=== PATIENT | female | born 1930 | race Caucasian/White ===

== ENCOUNTER 2017-06-19 16:12 | Inpatient (IN) | payer MEDICARE, MEDICAID ==
[~2017-06-19] VITALS: Ht 157.5 cm; Wt 50.5 kg
[~2017-06-19 16:12] MED LIST: ACET-75 PO; ALBU8.5H8 INH; ALEN70TA13 PO; DIVA250T6 PO; GABA-530 PO; LEVO50TA8 PO; METH500T PO; MULT-1141 PO; NITR0.4T SL; PANT-47 PO; SIMV10TA2 PO; SOTA80TA PO
[2017-06-19] MEDS ORDERED: normal saline 1000ML IV soln IV ONE (16:55)
[2017-06-19 17:14] LABS: ALANINE AMINOTRANSFERASE 22 U/L (12-78); ALBUMIN 3.8 G/DL (3.4-5.0); ALBUMIN/GLOBULIN RATIO 1.2 (1.1-1.5); ALKALINE PHOSPHATASE 83 IU/L (46-116); ANION GAP 9 (8-16); ASPARTATE AMINO TRANSFERASE 18 U/L (10-37); BILIRUBIN,TOTAL 1.1 MG/DL (0.1-1.0); BLOOD UREA NITROGEN 11 MG/DL (7-18); BUN/CREATININE RATIO 18.3 (6.6-38.0); CALCIUM 9.3 MG/DL (8.5-10.1); CHLORIDE 103 MMOL/L (99-107); GLUCOSE 121 MG/DL (70-104); POTASSIUM 4.1 MMOL/L (3.5-5.1); SODIUM 143 MMOL/L (135-145); eGFR > 90 ML/MIN
[2017-06-19 17:25] LABS: BASOPHILS % (AUTO) 0.4 % (0-1); EOSINOPHILS # (AUTO) 0.1 X10'3 (0-0.9); EOSINOPHILS % (AUTO) 0.8 % (0-6); HEMATOCRIT 35.4 % (35.0-45.0); HEMOGLOBIN 11.7 g/dl (12.0-16.0); LYMPHOCYTES # (AUTO) 3.3 X10'3 (1.1-4.8); LYMPHOCYTES % (AUTO) 48.9 % (21-51); MEAN CORPUSCULAR HEMOGLOBIN 30.4 PG (27.0-31.0); MEAN CORPUSCULAR HGB CONC 33.2 % (33.0-36.5); MEAN CORPUSCULAR VOLUME 91.5 FL (78-98); MEAN PLATELET VOLUME 10.4 FL (7.4-10.4); MONOCYTES # (AUTO) 0.8 X10'3 (0-0.9); MONOCYTES % (AUTO) 11.7 % (2-12); NEUTROPHILS # (AUTO) 2.6 X10'3 (1.8-7.7); NEUTROPHILS % (AUTO) 38.2 % (42-75); PLATELET COUNT 212 X10'3 (140-440); RED BLOOD COUNT 3.86 X10'6 (4.20-5.60); RED CELL DISTRIBUTION WIDTH 23.4 % (11.5-14.5); WHITE BLOOD COUNT 6.7 X10'3 (4.5-11.0)
[2017-06-19 17:38] LABS: CLARITY,URINE CLEAR (Clear); COLOR,URINE YELLOW (Yellow); GLUCOSE, URINE NEGATIVE (Neg); KETONES,URINE 15 mg/dl (Neg); LEUKOCYTE ESTERASE ,URINE TRACE (Neg); NITRITES, URINE POSITIVE (Neg); OCCULT BLOOD,URINE SMALL (Neg); PH,URINE 5.5 (4.8-8.0); PROTEIN,URINE >=300 mg/dl (Neg)
[2017-06-19 17:42] LABS: UA COLLECTION TYPE FOLEY CATH
[2017-06-19] MEDS ORDERED: levoFLOXACIN-Levaquin 750MG/D5 150 ML IV ONE (17:45)
[2017-06-19 17:49] LABS: PARTIAL THROMBOPLASTIN TIME 25 SECONDS (22-32); PROTHROMBIN TIME 10.6 SECONDS (9.0-12.0)
[2017-06-19 17:53] LABS: BACTERIA,URINE 3+ /HPF (Neg); RBC,URINE 0-2 /HPF (0-2); SQUAMOUS EPITHELIAL CELL,UR FEW /LPF (FEW); WBC,URINE 30-50 /HPF (0-4)
[2017-06-19 17:54] LABS: MAGNESIUM 1.9 MG/DL (1.5-2.4)
[2017-06-19] MEDS ORDERED: clindamycin 600mg/D5W 50ml 50 ML IV ONE (18:05)
[2017-06-19] MEDS ORDERED: SIMV10TA2 PO (18:49)
[2017-06-19] MEDS ORDERED: CHOL10002 PO (18:49)
[2017-06-19] MEDS ORDERED: DIVA500T7 PO (18:49)
[2017-06-19] MEDS ORDERED: OSC500T PO (18:49)
[2017-06-19 20:15] LABS: D-DIMER 0.52 MG/L FEU (0-0.50)
[2017-06-19] MEDS ORDERED: temazepam 15mg capsule PO PRN (21:00)
[2017-06-19] MEDS ORDERED: non-formulary drug (Alendronate Sodium 1 TABLET) PO SCH (21:25)
[2017-06-19] MEDS ORDERED: HYDROcodone/acetaminophen 5mg/325mg tablet PO PRN (21:30)
[2017-06-19] MEDS ORDERED: magnesium hydroxide 30ml (MOM) UD suspension PO PRN (21:30)
[2017-06-19] MEDS ORDERED: acetaminophen 325mg tablet PO PRN ×2 (21:30)
[2017-06-19] MEDS ORDERED: mag hydrox/Alum hydrox/simeth 30ml oral suspension PO PRN (21:30)
[2017-06-19] MEDS ORDERED: diphenhydrAMINE 25mg capsule PO PRN (21:30)
[2017-06-19] MEDS ORDERED: metoclopramide 5 mg/ml inj IV PRN (21:30)
[2017-06-19] MEDS ORDERED: diphenhydrAMINE 50 mg/ml inj IV PRN (21:30)
[2017-06-19] MEDS ORDERED: ondansetron/PF 4mg/2ml inj IV PRN (21:30)
[2017-06-19] MEDS ORDERED: bisacodyl 10mg suppository rectal RC PRN (21:30)
[2017-06-19] MEDS ORDERED: acetaminophen 650mg rectal suppository RC PRN (21:30)
[2017-06-19] MEDS ORDERED: lisinopril 10 MG tablet PO ONE (21:35)
[2017-06-19] MEDS ORDERED: cloNIDine 0.1 mg tablet PO ONE (21:35)
[2017-06-19] MEDS ORDERED: hydrALAZINE 20mg/ml inj. IV PRN (21:40)
[2017-06-19 21:54] LABS: LIPASE 86 U/L (73-393); PHOSPHORUS 3.4 MG/DL (2.3-4.5); VALPROATE 72 UG/ML (50-100)
[2017-06-19 22:34] LABS: PARTIAL THROMBOPLASTIN TIME 26 SECONDS (22-32); PROTHROMBIN TIME 10.8 SECONDS (9.0-12.0)
[2017-06-20] MEDS: clindamycin phosphate inj 300 MG in dextrose 5%-water 50ml 48 ML IV SCH ×2 (00:25→08:40)
[2017-06-20 07:14] LABS: BASOPHILS % (AUTO) 0.3 % (0-1); EOSINOPHILS % (AUTO) 1.2 % (0-6); HEMOGLOBIN 8.9 g/dl (12.0-16.0); LYMPHOCYTES # (AUTO) 1.9 X10'3 (1.1-4.8); LYMPHOCYTES % (AUTO) 58.1 % (21-51); MEAN CORPUSCULAR HEMOGLOBIN 30.2 PG (27.0-31.0); MEAN CORPUSCULAR HGB CONC 33.1 % (33.0-36.5); MEAN CORPUSCULAR VOLUME 91.3 FL (78-98); MEAN PLATELET VOLUME 9.7 FL (7.4-10.4); MONOCYTES # (AUTO) 0.5 X10'3 (0-0.9); MONOCYTES % (AUTO) 14.2 % (2-12); NEUTROPHILS # (AUTO) 0.8 X10'3 (1.8-7.7); NEUTROPHILS % (AUTO) 26.2 % (42-75); PLATELET COUNT 153 X10'3 (140-440); RED BLOOD COUNT 2.95 X10'6 (4.20-5.60); WHITE BLOOD COUNT 3.2 X10'3 (4.5-11.0)
[2017-06-20] MEDS: levoTHYROXINE 25mcg tablet PO SCH ×2 (07:15→08:36)
[2017-06-20 07:30] LABS: ALANINE AMINOTRANSFERASE 19 U/L (12-78); ALBUMIN 2.7 G/DL (3.4-5.0); ALBUMIN/GLOBULIN RATIO 1.1 (1.1-1.5); ALKALINE PHOSPHATASE 62 IU/L (46-116); ANION GAP 6 (8-16); ASPARTATE AMINO TRANSFERASE 14 U/L (10-37); BILIRUBIN,TOTAL 0.6 MG/DL (0.1-1.0); BLOOD UREA NITROGEN 11 MG/DL (7-18); BUN/CREATININE RATIO 18.3 (6.6-38.0); CALCIUM 8.5 MG/DL (8.5-10.1); CHLORIDE 108 MMOL/L (99-107); GLUCOSE 167 MG/DL (70-104); POTASSIUM 3.4 MMOL/L (3.5-5.1); SODIUM 146 MMOL/L (135-145); TOTAL CARBON DIOXIDE 32.2 MMOL/L (24-32); TOTAL PROTEIN 5.2 G/DL (6.4-8.2); eGFR > 90 ML/MIN
[2017-06-20 08:00] VITALS: BP 146/66
[2017-06-20] MEDS ORDERED: divalproex sodium 500mg tablet.DR PO SCH (08:00)
[2017-06-20] MEDS ORDERED: heparin, porcine 5000 units/ml vial SQ SCH (08:00)
[2017-06-20] MEDS ORDERED: methylPREDNISolone sod succ 125mg/2ml vial IV ONE (08:00)
[2017-06-20] MEDS ORDERED: non-formulary drug (Simvastatin (Zocor) 1 TAB) PO SCH (08:00)
[2017-06-20] MEDS ORDERED: non-formulary drug (Levothyroxine Sodium 1 TAB) PO SCH (08:00)
[2017-06-20] MEDS ORDERED: magnesium 4gm in 100ml NS 100 ML IV PRN (08:15)
[2017-06-20] MEDS ORDERED: potassium Cl 20 mEq SR tablet PO PRN (08:15)
[2017-06-20] MEDS ORDERED: potassium Cl 40MEQ/NS 500ml 500 ML IV PRN ×2 (08:15)
[2017-06-20] MEDS ORDERED: magnesium Cl slow-release 64mg tablet PO PRN (08:15)
[2017-06-20] MEDS ORDERED: magnesium 2GM in 50ml NS 50 ML IV PRN (08:15)
[2017-06-20] MEDS: gabapentin 300mg capsule PO SCH ×2 (08:36→19:53)
[2017-06-20] MEDS: pantoprazole 40mg Tablet.DR PO SCH (08:36)
[2017-06-20] MEDS: sotalol 80mg tablet PO SCH ×2 (08:36→19:53)
[2017-06-20] MEDS: atorvastatin 10mg tablet PO SCH (08:36)
[2017-06-20] MEDS: docusate sod 100mg capsule PO SCH ×2 (08:36→19:53)
[2017-06-20] MEDS: potassium Cl 20 mEq SR tablet PO PRN ×3 (08:40→21:52)
[2017-06-20] MEDS: divalproex sodium 250mg tablet PO SCH ×3 (08:47→20:56)
[2017-06-20 11:00] VITALS: BP 135/61
[2017-06-20] MEDS ORDERED: vancomycin/NS 1 GM ADD-VANTAGE 250 ML X 1 DOSE IV ONE (15:35)
[2017-06-20] MEDS: potassium cl 20mEq in 1/2 NS 1,000 ML IV SCH (17:29)
[2017-06-20] MEDS: methylPREDNISolone sod succ 125mg/2ml vial IV SCH (17:29)
[2017-06-20 19:50] VITALS: BP 150/80
[2017-06-20] MEDS: ipratropium/albuterol 3ml nebule NEB SCH ×2 (19:51→23:40)
[2017-06-20] MEDS ORDERED: vancomycin/NS 1 GM ADD-VANTAGE 250 ML IV SCH (20:00)
[2017-06-20] MEDS: aztreonam inj. 1,000 MG in normal saline 100ml IV soln 100 ML IV SCH (20:56)
[2017-06-21 00:30] VITALS: BP 132/80
[2017-06-21] MEDS: methylPREDNISolone sod succ 125mg/2ml vial IV SCH ×3 (01:02→16:18)
[2017-06-21] MEDS: aztreonam inj. 1,000 MG in normal saline 100ml IV soln 100 ML IV SCH ×3 (01:02→16:19)
[2017-06-21] MEDS: ipratropium/albuterol 3ml nebule NEB SCH ×6 (02:13→23:36)
[2017-06-21] MEDS: potassium cl 20mEq in 1/2 NS 1,000 ML IV SCH ×2 (03:50→11:06)
[2017-06-21 05:51] LABS: HEMATOCRIT 28.7 % (35.0-45.0); HEMOGLOBIN 9.5 g/dl (12.0-16.0); MEAN CORPUSCULAR HEMOGLOBIN 30.2 PG (27.0-31.0); MEAN CORPUSCULAR HGB CONC 33.3 % (33.0-36.5); MEAN CORPUSCULAR VOLUME 90.9 FL (78-98); PLATELET COUNT 178 X10'3 (140-440); RED BLOOD COUNT 3.15 X10'6 (4.20-5.60); RED CELL DISTRIBUTION WIDTH 22.6 % (11.5-14.5); WHITE BLOOD COUNT 1.4 X10'3 (4.5-11.0)
[2017-06-21 06:12] LABS: ALANINE AMINOTRANSFERASE 17 U/L (12-78); ALBUMIN 2.9 G/DL (3.4-5.0); ALKALINE PHOSPHATASE 68 IU/L (46-116); ANION GAP 7 (8-16); ASPARTATE AMINO TRANSFERASE 15 U/L (10-37); BILIRUBIN,TOTAL 0.5 MG/DL (0.1-1.0); BLOOD UREA NITROGEN 7 MG/DL (7-18); CALCIUM 8.6 MG/DL (8.5-10.1); CHLORIDE 107 MMOL/L (99-107); GLUCOSE 200 MG/DL (70-104); POTASSIUM 4.8 MMOL/L (3.5-5.1); SODIUM 144 MMOL/L (135-145); TOTAL CARBON DIOXIDE 29.8 MMOL/L (24-32); TOTAL PROTEIN 5.8 G/DL (6.4-8.2); eGFR 79 ML/MIN
[2017-06-21 07:00] VITALS: BP 154/75
[2017-06-21 07:19] LABS: LARGE PLATELETS FEW; PLATELET ESTIMATE NORMAL; TOTAL CELLS COUNTED 100
[2017-06-21 07:20] LABS: ACANTHOCYTES FEW; ANISOCYTOSIS 3+; POLYCHROMASIA FEW; TEAR DROP CELLS FEW
[2017-06-21] MEDS: sotalol 80mg tablet PO SCH ×2 (08:15→19:38)
[2017-06-21] MEDS: divalproex sodium 250mg tablet PO SCH ×3 (08:15→21:45)
[2017-06-21] MEDS: gabapentin 300mg capsule PO SCH ×2 (08:15→19:38)
[2017-06-21] MEDS: docusate sod 100mg capsule PO SCH ×2 (08:15→19:38)
[2017-06-21] MEDS: atorvastatin 10mg tablet PO SCH (08:15)
[2017-06-21] MEDS: pantoprazole 40mg Tablet.DR PO SCH (08:15)
[2017-06-21 11:00] VITALS: BP 149/72
[2017-06-21] MEDS: VANCOMYCIN 750MG IV in NS 250 ML IV SCH (17:16)
[2017-06-21] MEDS: lactobacillus rhamnosus 10,000 MMU CELLS/CAPSULE PO SCH (17:16)
[2017-06-21 18:30] VITALS: BP 159/80
[2017-06-21] MEDS: methylPREDNISolone sod succ/PF 40mg inj. IV SCH (19:50)
[2017-06-22] VITALS: BP 140/55
[2017-06-22] MEDS: aztreonam inj. 1,000 MG in normal saline 100ml IV soln 100 ML IV SCH ×3 (00:11→15:01)
[2017-06-22] MEDS: ipratropium/albuterol 3ml nebule NEB SCH ×6 (03:16→23:15)
[2017-06-22 03:23] LABS: HEMATOCRIT 25.8 % (35.0-45.0); HEMOGLOBIN 8.6 g/dl (12.0-16.0); MEAN CORPUSCULAR HEMOGLOBIN 30.1 PG (27.0-31.0); MEAN CORPUSCULAR HGB CONC 33.5 % (33.0-36.5); MEAN CORPUSCULAR VOLUME 89.9 FL (78-98); PLATELET COUNT 170 X10'3 (140-440); RED BLOOD COUNT 2.87 X10'6 (4.20-5.60); RED CELL DISTRIBUTION WIDTH 22.9 % (11.5-14.5); WHITE BLOOD COUNT 4.2 X10'3 (4.5-11.0)
[2017-06-22 03:38] LABS: ALANINE AMINOTRANSFERASE 19 U/L (12-78); ALBUMIN 2.8 G/DL (3.4-5.0); ALBUMIN/GLOBULIN RATIO 1.1 (1.1-1.5); ALKALINE PHOSPHATASE 64 IU/L (46-116); ANION GAP 7 (8-16); ASPARTATE AMINO TRANSFERASE 14 U/L (10-37); BILIRUBIN,TOTAL 0.5 MG/DL (0.1-1.0); BLOOD UREA NITROGEN 19 MG/DL (7-18); BUN/CREATININE RATIO 27.1 (6.6-38.0); CALCIUM 8.8 MG/DL (8.5-10.1); CHLORIDE 105 MMOL/L (99-107); GLUCOSE 187 MG/DL (70-104); MAGNESIUM 1.7 MG/DL (1.5-2.4); SODIUM 142 MMOL/L (135-145); TOTAL CARBON DIOXIDE 29.8 MMOL/L (24-32); TOTAL PROTEIN 5.4 G/DL (6.4-8.2); eGFR 79 ML/MIN
[2017-06-22 04:19] LABS: PLATELET ESTIMATE NORMAL; TOTAL CELLS COUNTED 100
[2017-06-22 04:20] LABS: ACANTHOCYTES FEW; ANISOCYTOSIS 3+; TEAR DROP CELLS FEW
[2017-06-22] MEDS: methylPREDNISolone sod succ/PF 40mg inj. IV SCH (07:37)
[2017-06-22] MEDS: levoTHYROXINE 25mcg tablet PO SCH (07:43)
[2017-06-22] MEDS: atorvastatin 10mg tablet PO SCH (07:44)
[2017-06-22] MEDS: docusate sod 100mg capsule PO SCH ×2 (07:44→20:22)
[2017-06-22] MEDS: lactobacillus rhamnosus 10,000 MMU CELLS/CAPSULE PO SCH ×2 (07:44→16:31)
[2017-06-22] MEDS: divalproex sodium 250mg tablet PO SCH ×3 (07:44→20:22)
[2017-06-22] MEDS: pantoprazole 40mg Tablet.DR PO SCH (07:45)
[2017-06-22] MEDS: gabapentin 300mg capsule PO SCH ×2 (07:45→20:22)
[2017-06-22 08:00] VITALS: BP 151/61
[2017-06-22] MEDS: sotalol 80mg tablet PO SCH ×2 (08:38→20:22)
[2017-06-22 11:00] VITALS: BP 158/76
[2017-06-22] MEDS: VANCOMYCIN 750MG IV in NS 250 ML IV SCH (16:24)
[2017-06-22] MEDS: LACTOSE-FREE FOOD 237ML (BOOST) PO SCH (18:35)
[2017-06-22 19:00] VITALS: BP 159/68
[2017-06-23] VITALS: BP 162/79
[2017-06-23] MEDS: aztreonam inj. 1,000 MG in normal saline 100ml IV soln 100 ML IV SCH ×3 (00:25→16:08)
[2017-06-23] MEDS: ipratropium/albuterol 3ml nebule NEB SCH ×6 (02:36→23:55)
[2017-06-23 05:56] LABS: BASOPHILS % (AUTO) 0.2 % (0-1); EOSINOPHILS % (AUTO) 0.7 % (0-6); HEMATOCRIT 29.1 % (35.0-45.0); HEMOGLOBIN 9.6 g/dl (12.0-16.0); LYMPHOCYTES # (AUTO) 1.1 X10'3 (1.1-4.8); LYMPHOCYTES % (AUTO) 26.8 % (21-51); MEAN CORPUSCULAR HEMOGLOBIN 30.5 PG (27.0-31.0); MEAN CORPUSCULAR HGB CONC 33.2 % (33.0-36.5); MEAN CORPUSCULAR VOLUME 91.9 FL (78-98); MEAN PLATELET VOLUME 10.5 FL (7.4-10.4); MONOCYTES # (AUTO) 0.1 X10'3 (0-0.9); MONOCYTES % (AUTO) 3.1 % (2-12); NEUTROPHILS # (AUTO) 2.8 X10'3 (1.8-7.7); NEUTROPHILS % (AUTO) 69.2 % (42-75); PLATELET COUNT 196 X10'3 (140-440); RED BLOOD COUNT 3.16 X10'6 (4.20-5.60)
[2017-06-23 06:16] LABS: LARGE PLATELETS MODERATE; PLATELET ESTIMATE NORMAL
[2017-06-23 06:19] LABS: ALANINE AMINOTRANSFERASE 17 U/L (12-78); ALBUMIN/GLOBULIN RATIO 1.1 (1.1-1.5); ALKALINE PHOSPHATASE 62 IU/L (46-116); ANION GAP 10 (8-16); ASPARTATE AMINO TRANSFERASE 15 U/L (10-37); BILIRUBIN,TOTAL 0.6 MG/DL (0.1-1.0); BLOOD UREA NITROGEN 15 MG/DL (7-18); BUN/CREATININE RATIO 21.4 (6.6-38.0); CALCIUM 9.2 MG/DL (8.5-10.1); CHLORIDE 105 MMOL/L (99-107); GLUCOSE 129 MG/DL (70-104); MAGNESIUM 1.7 MG/DL (1.5-2.4); POTASSIUM 3.9 MMOL/L (3.5-5.1); SODIUM 145 MMOL/L (135-145); TOTAL PROTEIN 5.8 G/DL (6.4-8.2); eGFR 79 ML/MIN
[2017-06-23 08:00] VITALS: BP 166/76
[2017-06-23] MEDS: docusate sod 100mg capsule PO SCH ×2 (08:04→20:45)
[2017-06-23] MEDS: levoTHYROXINE 25mcg tablet PO SCH (08:04)
[2017-06-23] MEDS: sotalol 80mg tablet PO SCH ×2 (08:04→20:44)
[2017-06-23] MEDS: lactobacillus rhamnosus 10,000 MMU CELLS/CAPSULE PO SCH ×2 (08:04→17:26)
[2017-06-23] MEDS: gabapentin 300mg capsule PO SCH ×2 (08:05→20:45)
[2017-06-23] MEDS: divalproex sodium 250mg tablet PO SCH ×3 (08:05→20:45)
[2017-06-23] MEDS: pantoprazole 40mg Tablet.DR PO SCH (08:05)
[2017-06-23] MEDS: atorvastatin 10mg tablet PO SCH (08:05)
[2017-06-23] MEDS: LACTOSE-FREE FOOD 237ML (BOOST) PO SCH ×3 (08:07→18:00)
[2017-06-23] MEDS ORDERED: predniSONE 20 mg tablet PO SCH (08:30)
[2017-06-23 11:00] VITALS: BP 157/70
[2017-06-23] MEDS: VANCOMYCIN 750MG IV in NS 250 ML IV SCH (17:20)
[2017-06-23 19:30] VITALS: BP 195/83
[2017-06-23 23:45] VITALS: BP 103/60
[2017-06-24] MEDS: aztreonam inj. 1,000 MG in normal saline 100ml IV soln 100 ML IV SCH ×2 (00:05→08:17)
[2017-06-24] MEDS: ipratropium/albuterol 3ml nebule NEB SCH ×3 (03:18→11:00)
[2017-06-24 06:22] LABS: ALANINE AMINOTRANSFERASE 16 U/L (12-78); ALBUMIN/GLOBULIN RATIO 1.1 (1.1-1.5); ALKALINE PHOSPHATASE 63 IU/L (46-116); ANION GAP 7 (8-16); ASPARTATE AMINO TRANSFERASE 17 U/L (10-37); BILIRUBIN,TOTAL 0.9 MG/DL (0.1-1.0); BLOOD UREA NITROGEN 15 MG/DL (7-18); CALCIUM 9.5 MG/DL (8.5-10.1); CHLORIDE 104 MMOL/L (99-107); GLUCOSE 107 MG/DL (70-104); MAGNESIUM 1.8 MG/DL (1.5-2.4); SODIUM 145 MMOL/L (135-145); TOTAL CARBON DIOXIDE 33.7 MMOL/L (24-32); TOTAL PROTEIN 5.7 G/DL (6.4-8.2); eGFR > 90 ML/MIN
[2017-06-24 06:23] LABS: BASOPHILS % (AUTO) 0.2 % (0-1); EOSINOPHILS # (AUTO) 0.1 X10'3 (0-0.9); HEMATOCRIT 30.8 % (35.0-45.0); HEMOGLOBIN 10.3 g/dl (12.0-16.0); LYMPHOCYTES # (AUTO) 2.8 X10'3 (1.1-4.8); MEAN CORPUSCULAR HEMOGLOBIN 30.3 PG (27.0-31.0); MEAN CORPUSCULAR HGB CONC 33.3 % (33.0-36.5); MEAN CORPUSCULAR VOLUME 91.1 FL (78-98); MEAN PLATELET VOLUME 9.6 FL (7.4-10.4); MONOCYTES # (AUTO) 0.4 X10'3 (0-0.9); MONOCYTES % (AUTO) 7.9 % (2-12); NEUTROPHILS # (AUTO) 1.9 X10'3 (1.8-7.7); NEUTROPHILS % (AUTO) 35.9 % (42-75); PLATELET COUNT 183 X10'3 (140-440); RED BLOOD COUNT 3.39 X10'6 (4.20-5.60); RED CELL DISTRIBUTION WIDTH 23.6 % (11.5-14.5); WHITE BLOOD COUNT 5.2 X10'3 (4.5-11.0)
[2017-06-24 06:54] VITALS: BP 171/72
[2017-06-24] MEDS: sotalol 80mg tablet PO SCH (08:13)
[2017-06-24] MEDS: lactobacillus rhamnosus 10,000 MMU CELLS/CAPSULE PO SCH (08:15)
[2017-06-24] MEDS: gabapentin 300mg capsule PO SCH (08:15)
[2017-06-24] MEDS: divalproex sodium 250mg tablet PO SCH ×2 (08:15→13:00)
[2017-06-24] MEDS: atorvastatin 10mg tablet PO SCH (08:16)
[2017-06-24] MEDS: docusate sod 100mg capsule PO SCH (08:16)
[2017-06-24] MEDS: pantoprazole 40mg Tablet.DR PO SCH (08:16)
[2017-06-24] MEDS: levoTHYROXINE 25mcg tablet PO SCH (08:16)
[2017-06-24] MEDS: LACTOSE-FREE FOOD 237ML (BOOST) PO SCH ×2 (08:17→13:00)
[2017-06-24] MEDS ORDERED: predniSONE 20 mg tablet PO SCH (08:30)
[2017-06-24] MEDS ORDERED: potassium Cl 20 mEq SR tablet PO PRN ×2 (08:40)
[2017-06-24] MEDS ORDERED: magnesium Cl slow-release 64mg tablet PO PRN (08:40)
[2017-06-24 11:00] VITALS: BP 154/71
[2017-06-24] MEDS ORDERED: VANCOMYCIN LEVEL IV NR (15:30)
== END 2017-06-24 13:00 | DRG 193 ==
LOC: ER 16:13 → ED HOLD 21:30 → SUR 3N 06-20 08:01
PROVIDERS: ADMIT Family Medicine; ATTEND Internal Medicine
DX: J18.9 Pneumonia, unspecified organism (principal); J96.01 Acute respiratory failure with hypoxia; E44.0 Moderate protein-calorie malnutrition; J44.0 Chronic obstructive pulmonary disease with (acute) lower respiratory infection; N39.0 Urinary tract infection, site not specified; J44.1 Chronic obstructive pulmonary disease with (acute) exacerbation; G62.9 Polyneuropathy, unspecified; Z99.81 Dependence on supplemental oxygen; G40.909 Epilepsy, unspecified, not intractable, without status epilepticus; B96.20 Unspecified Escherichia coli [E. coli] as the cause of diseases classified elsewhere; D64.9 Anemia, unspecified; E03.9 Hypothyroidism, unspecified; E78.00 Pure hypercholesterolemia, unspecified; E87.6 Hypokalemia; I10 Essential (primary) hypertension; I25.10 Atherosclerotic heart disease of native coronary artery without angina pectoris; M81.0 Age-related osteoporosis without current pathological fracture; F32.9 Major depressive disorder, single episode, unspecified; F41.9 Anxiety disorder, unspecified; G89.29 Other chronic pain; Z66 Do not resuscitate; Z90.49 Acquired absence of other specified parts of digestive tract; Z98.42 Cataract extraction status, left eye; Z98.41 Cataract extraction status, right eye; Z88.6 Allergy status to analgesic agent; Z88.1 Allergy status to other antibiotic agents; Z88.0 Allergy status to penicillin; Z88.8 Allergy status to other drugs, medicaments and biological substances; Z79.899 Other long term (current) drug therapy; Z85.038 Personal history of other malignant neoplasm of large intestine; Z86.73 Personal history of transient ischemic attack (TIA), and cerebral infarction without residual deficits; Z82.49 Family history of ischemic heart disease and other diseases of the circulatory system; Z80.8 Family history of malignant neoplasm of other organs or systems; Z80.3 Family history of malignant neoplasm of breast; Z82.3 Family history of stroke; Z80.0 Family history of malignant neoplasm of digestive organs; Z68.20 Body mass index [BMI] 20.0-20.9, adult
CPT/HCPCS: 36415; 71045; 71250; 80053; 80164; 81001; 83605; 83690; 83735; 83880; 84100; 84145; 84484; 85025; 85379; 85610; 85730; 87040; 87070; 87077; 87088; 87186; 87502; 87503; 93005; 94640; 94760; 96361; 96365; 97116; 97161; 97530; 99285; J1644; J1956; J2920; J2930; J3370; J3490; J7030; J7060; J7512

== ENCOUNTER 2017-08-06 09:41 | Inpatient (IN) | payer MEDICARE, MEDICAID ==
[~2017-08-06] VITALS: Ht 157.5 cm; Wt 49.1 kg
[~2017-08-06 09:41] MED LIST changes: -ACET-75 PO; -ALBU8.5H8 INH; -ALEN70TA13 PO; +CHOL10002 PO; -DIVA250T6 PO; +DIVA500T7 PO; -METH500T PO; -MULT-1141 PO; +OSC500T PO
[2017-08-06 10:39] LABS: ALANINE AMINOTRANSFERASE 17 U/L (12-78); ALBUMIN 3.2 G/DL (3.4-5.0); ALBUMIN/GLOBULIN RATIO 0.9 (1.1-1.5); ALKALINE PHOSPHATASE 65 IU/L (46-116); ANION GAP 8 (8-16); ASPARTATE AMINO TRANSFERASE 22 U/L (10-37); BILIRUBIN,TOTAL 1.1 MG/DL (0.1-1.0); BLOOD UREA NITROGEN 11 MG/DL (7-18); BUN/CREATININE RATIO 13.8 (6.6-38.0); CALCIUM 8.9 MG/DL (8.5-10.1); CHLORIDE 104 MMOL/L (99-107); GLUCOSE 123 MG/DL (70-104); POTASSIUM 4.8 MMOL/L (3.5-5.1); SODIUM 141 MMOL/L (135-145); TOTAL CARBON DIOXIDE 29.5 MMOL/L (24-32); TOTAL PROTEIN 6.6 G/DL (6.4-8.2); eGFR 68 ML/MIN
[2017-08-06 10:55] LABS: BASOPHILS % (AUTO) 0.3 % (0-1); EOSINOPHILS % (AUTO) 0.8 % (0-6); HEMATOCRIT 26.3 % (35.0-45.0); HEMOGLOBIN 8.4 g/dl (12.0-16.0); LYMPHOCYTES # (AUTO) 1.9 X10'3 (1.1-4.8); LYMPHOCYTES % (AUTO) 42.5 % (21-51); MEAN CORPUSCULAR HEMOGLOBIN 29.7 PG (27.0-31.0); MEAN CORPUSCULAR HGB CONC 31.8 % (33.0-36.5); MEAN CORPUSCULAR VOLUME 93.5 FL (78-98); MEAN PLATELET VOLUME 9.7 FL (7.4-10.4); MONOCYTES # (AUTO) 0.5 X10'3 (0-0.9); MONOCYTES % (AUTO) 10.5 % (2-12); NEUTROPHILS # (AUTO) 2.1 X10'3 (1.8-7.7); NEUTROPHILS % (AUTO) 45.9 % (42-75); RED BLOOD COUNT 2.82 X10'6 (4.20-5.60); RED CELL DISTRIBUTION WIDTH 27.6 % (11.5-14.5); WHITE BLOOD COUNT 4.6 X10'3 (4.5-11.0)
[2017-08-06 11:26] LABS: CLARITY,URINE CLEAR (Clear); COLOR,URINE YELLOW (Yellow); GLUCOSE, URINE NEGATIVE (Neg); KETONES,URINE TRACE mg/dl (Neg); LEUKOCYTE ESTERASE ,URINE NEGATIVE (Neg); NITRITES, URINE NEGATIVE (Neg); OCCULT BLOOD,URINE TRACE-LYSED (Neg); PROTEIN,URINE 30 mg/dl (Neg); UROBILINOGEN,URINE 0.2 E.U/dL (0.2-1.0)
[2017-08-06 11:32] LABS: UA COLLECTION TYPE CLN CATCH MIDSTREAM
[2017-08-06 11:36] LABS: SQUAMOUS EPITHELIAL CELL,UR MODERATE /LPF (FEW)
[2017-08-06 11:37] LABS: BACTERIA,URINE FEW /HPF (Neg); RBC,URINE 0-2 /HPF (0-2)
[2017-08-06 11:50] LABS: ANISOCYTOSIS 3+; GIANT PLATELET FEW; LARGE PLATELETS FEW; PLATELET COUNT 270 X10'3 (140-440); PLATELET ESTIMATE NORMAL
[2017-08-06 11:52] LABS: POLYCHROMASIA 1+
[2017-08-06 11:53] LABS: ACANTHOCYTES FEW; ELLIPTOCYTES FEW
[2017-08-06] MEDS ORDERED: iohexol 300mg/ml 100ml inj. ONE (12:08)
[2017-08-06] MEDS ORDERED: ipratropium/albuterol 3ml nebule NEB ONE (14:15)
[2017-08-06] MEDS ORDERED: normal saline 1000ML IV soln IVB ONE (14:15)
[2017-08-06] MEDS ORDERED: azithromycin/NS 500mg/250ml 250 ML IV ONE (14:15)
[2017-08-06] MEDS ORDERED: acetaminophen 325mg tablet PO PRN (14:40)
[2017-08-06] MEDS ORDERED: magnesium 2GM in 50ml NS 50 ML IV PRN (14:40)
[2017-08-06] MEDS ORDERED: magnesium Cl slow-release 64mg tablet PO PRN (14:40)
[2017-08-06] MEDS ORDERED: morphine 4 MG/ML inj SYRINge IV PRN (14:40)
[2017-08-06] MEDS ORDERED: potassium Cl 40MEQ/NS 500ml 500 ML IV PRN ×2 (14:40)
[2017-08-06] MEDS ORDERED: ondansetron/PF 4mg/2ml inj IV PRN (14:40)
[2017-08-06] MEDS ORDERED: magnesium hydroxide 30ml (MOM) UD suspension PO PRN (14:40)
[2017-08-06] MEDS ORDERED: potassium Cl 20 mEq SR tablet PO PRN ×2 (14:40)
[2017-08-06] MEDS ORDERED: magnesium 4gm in 100ml NS 100 ML IV PRN (14:40)
[2017-08-06] MEDS ORDERED: mag hydrox/Alum hydrox/simeth 30ml oral suspension PO PRN (14:40)
[2017-08-06 15:10] LABS: OCCULT BLOOD STOOL NEGATIVE (Neg)
[2017-08-06] MEDS ORDERED: POTA20TA19 PO (15:14)
[2017-08-06] MEDS ORDERED: CIPR-260 PO (15:18)
[2017-08-06] MEDS: ipratropium/albuterol 3ml nebule NEB SCH ×3 (16:20→23:58)
[2017-08-06] MEDS: heparin, porcine 5000 units/ml vial SQ SCH (20:18)
[2017-08-06] MEDS: meropenem inj 1 GM in normal saline 100ml IV soln 100 ML IV SCH (23:01)
[2017-08-07] VITALS: BP 150/51
[2017-08-07] MEDS: ipratropium/albuterol 3ml nebule NEB SCH ×3 (04:03→20:51)
[2017-08-07 05:14] LABS: BASOPHILS % (AUTO) 0.3 % (0-1); EOSINOPHILS % (AUTO) 0.9 % (0-6); HEMATOCRIT 25.6 % (35.0-45.0); HEMOGLOBIN 8.2 g/dl (12.0-16.0); LYMPHOCYTES # (AUTO) 1.8 X10'3 (1.1-4.8); LYMPHOCYTES % (AUTO) 53.1 % (21-51); MEAN CORPUSCULAR HEMOGLOBIN 29.5 PG (27.0-31.0); MEAN CORPUSCULAR HGB CONC 32.1 % (33.0-36.5); MEAN PLATELET VOLUME 9.9 FL (7.4-10.4); MONOCYTES # (AUTO) 0.4 X10'3 (0-0.9); MONOCYTES % (AUTO) 11.7 % (2-12); NEUTROPHILS # (AUTO) 1.2 X10'3 (1.8-7.7); PLATELET COUNT 192 X10'3 (140-440); RED BLOOD COUNT 2.78 X10'6 (4.20-5.60); RED CELL DISTRIBUTION WIDTH 26.9 % (11.5-14.5); WHITE BLOOD COUNT 3.4 X10'3 (4.5-11.0)
[2017-08-07 05:22] LABS: PROTHROMBIN TIME 10.6 SECONDS (9.0-12.0)
[2017-08-07 05:24] LABS: ANION GAP 7 (8-16); BLOOD UREA NITROGEN 9 MG/DL (7-18); BUN/CREATININE RATIO 14.8 (6.6-38.0); CALCIUM 8.9 MG/DL (8.5-10.1); CHLORIDE 104 MMOL/L (99-107); CREATININE 0.61 MG/DL (0.40-0.90); GLUCOSE 100 MG/DL (70-104); MAGNESIUM 1.8 MG/DL (1.5-2.4); SODIUM 142 MMOL/L (135-145); TOTAL CARBON DIOXIDE 30.8 MMOL/L (24-32); eGFR > 90 ML/MIN
[2017-08-07 06:05] LABS: GIANT PLATELET FEW; LARGE PLATELETS FEW; PLATELET ESTIMATE NORMAL
[2017-08-07 06:07] LABS: ANISOCYTOSIS 3+; HYPOCHROMASIA 1+; POLYCHROMASIA 1+; SCHISTOCYTES 1+
[2017-08-07 06:08] LABS: ACANTHOCYTES FEW
[2017-08-07 08:00] VITALS: BP_SYST 11; BP_SYST 110; BP_SYST 111; BP_SYST 112; BP_DIAS 62; BP_DIAS 63; BP_DIAS 67
[2017-08-07] MEDS ORDERED: pantoprazole 40 MG vial IV SCH (08:00)
[2017-08-07] MEDS: heparin, porcine 5000 units/ml vial SQ SCH ×2 (08:00→21:08)
[2017-08-07] MEDS: K and/or MAG REPLACEMENT MC SCH (08:00)
[2017-08-07] MEDS ORDERED: divalproex sodium 500mg tablet.DR PO SCH (08:58)
[2017-08-07] MEDS: furosemide 20 MG/2 ML vial IV SCH ×2 (09:07→17:23)
[2017-08-07] MEDS: meropenem inj 1 GM in normal saline 100ml IV soln 100 ML IV SCH ×2 (09:07→15:57)
[2017-08-07] MEDS: sotalol 80mg tablet PO SCH ×2 (09:08→21:06)
[2017-08-07] MEDS: gabapentin 100mg capsule PO SCH ×3 (09:09→21:06)
[2017-08-07] MEDS: pantoprazole 40mg Tablet.DR PO SCH (09:22)
[2017-08-07] MEDS: levoTHYROXINE 25mcg tablet PO SCH (09:23)
[2017-08-07] MEDS ORDERED: divalproex sodium 250mg tablet PO ONE (10:25)
[2017-08-07 11:00] VITALS: BP 122/53
[2017-08-07 11:20] VITALS: BP 179/65
[2017-08-07 11:30] VITALS: BP 164/78
[2017-08-07] MEDS: divalproex sodium 250mg tablet PO SCH ×2 (15:18→21:05)
[2017-08-07 20:00] VITALS: BP_SYST 132; BP_SYST 148; BP_SYST 150; BP_DIAS 57; BP_DIAS 79; BP_DIAS 80; BP_DIAS 82
[2017-08-07] MEDS ORDERED: atorvastatin 10mg tablet PO SCH (21:00)
[2017-08-07] MEDS: calcium carbonate 500mg tablet PO SCH (21:05)
[2017-08-07] MEDS: lactobacillus rhamnosus 10,000 MMU CELLS/CAPSULE PO SCH (21:13)
[2017-08-08] VITALS: BP 124/58
[2017-08-08] MEDS: meropenem inj 1 GM in normal saline 100ml IV soln 100 ML IV SCH ×2 (00:31→09:00)
[2017-08-08] MEDS: ipratropium/albuterol 3ml nebule NEB SCH ×4 (00:40→11:13)
[2017-08-08 05:36] LABS: BASOPHILS % (AUTO) 0.3 % (0-1); EOSINOPHILS % (AUTO) 0.9 % (0-6); HEMATOCRIT 26.4 % (35.0-45.0); HEMOGLOBIN 8.6 g/dl (12.0-16.0); LYMPHOCYTES # (AUTO) 2.2 X10'3 (1.1-4.8); MEAN CORPUSCULAR HEMOGLOBIN 29.8 PG (27.0-31.0); MEAN CORPUSCULAR HGB CONC 32.5 % (33.0-36.5); MEAN CORPUSCULAR VOLUME 91.6 FL (78-98); MEAN PLATELET VOLUME 10.1 FL (7.4-10.4); MONOCYTES # (AUTO) 0.5 X10'3 (0-0.9); MONOCYTES % (AUTO) 13.8 % (2-12); NEUTROPHILS # (AUTO) 0.7 X10'3 (1.8-7.7); PLATELET COUNT 181 X10'3 (140-440); RED BLOOD COUNT 2.88 X10'6 (4.20-5.60); WHITE BLOOD COUNT 3.4 X10'3 (4.5-11.0)
[2017-08-08 05:41] LABS: PROTHROMBIN TIME 10.5 SECONDS (9.0-12.0)
[2017-08-08 05:54] LABS: ANION GAP 4 (8-16); BLOOD UREA NITROGEN 11 MG/DL (7-18); BUN/CREATININE RATIO 15.3 (6.6-38.0); CALCIUM 8.9 MG/DL (8.5-10.1); CHLORIDE 101 MMOL/L (99-107); CREATININE 0.72 MG/DL (0.40-0.90); GLUCOSE 110 MG/DL (70-104); MAGNESIUM 1.6 MG/DL (1.5-2.4); POTASSIUM 3.8 MMOL/L (3.5-5.1); SODIUM 140 MMOL/L (135-145); TOTAL CARBON DIOXIDE 34.6 MMOL/L (24-32); eGFR 76 ML/MIN
[2017-08-08 06:32] LABS: LARGE PLATELETS FEW; PLATELET ESTIMATE NORMAL
[2017-08-08 06:33] LABS: ANISOCYTOSIS 2+; SPHEROCYTES 1+; TARGET CELLS FEW; TEAR DROP CELLS 1+
[2017-08-08 06:34] LABS: HYPOCHROMASIA 1+; SCHISTOCYTES 1+; STOMATOCYTES 1+
[2017-08-08 07:00] VITALS: BP 144/45
[2017-08-08] MEDS: K and/or MAG REPLACEMENT MC SCH (08:00)
[2017-08-08] MEDS ORDERED: potassium Cl 20 mEq SR tablet PO SCH (08:00)
[2017-08-08] MEDS ORDERED: vitamin D (cholecalciferol) 1,000 unit tablet PO SCH (08:00)
[2017-08-08] MEDS: calcium carbonate 500mg tablet PO SCH (08:56)
[2017-08-08] MEDS: gabapentin 100mg capsule PO SCH ×2 (08:56→14:03)
[2017-08-08] MEDS: pantoprazole 40mg Tablet.DR PO SCH (08:56)
[2017-08-08] MEDS: lactobacillus rhamnosus 10,000 MMU CELLS/CAPSULE PO SCH (08:57)
[2017-08-08] MEDS: divalproex sodium 250mg tablet PO SCH ×2 (08:57→14:03)
[2017-08-08] MEDS: levoTHYROXINE 25mcg tablet PO SCH (08:58)
[2017-08-08] MEDS: sotalol 80mg tablet PO SCH (08:58)
[2017-08-08] MEDS: heparin, porcine 5000 units/ml vial SQ SCH (08:59)
[2017-08-08] MEDS: furosemide 20 MG/2 ML vial IV SCH (09:00)
[2017-08-08 11:00] VITALS: BP 102/57
[2017-08-08] MEDS ORDERED: AZIT500T PO (12:30)
== END 2017-08-08 14:27 | disposition home health service (06) | DRG 291 ==
LOC: ER 09:42 → ED HOLD 14:39 → EDBEDREQ 21:39 → SUR 3N 22:15
PROVIDERS: ADMIT Nurse Practitioner Family; ATTEND Internal Medicine
PROC: 0W9B3ZZ Drainage of Left Pleural Cavity, Percutaneous Approach (ICD-10-PCS; principal; 2017-08-07)
PROC: 0W993ZZ Drainage of Right Pleural Cavity, Percutaneous Approach (ICD-10-PCS; 2017-08-07)
DX: I11.0 Hypertensive heart disease with heart failure (principal); J18.9 Pneumonia, unspecified organism; J90 Pleural effusion, not elsewhere classified; G62.9 Polyneuropathy, unspecified; Z99.81 Dependence on supplemental oxygen; D64.9 Anemia, unspecified; J44.0 Chronic obstructive pulmonary disease with (acute) lower respiratory infection; N39.0 Urinary tract infection, site not specified; I50.23 Acute on chronic systolic (congestive) heart failure; E03.9 Hypothyroidism, unspecified; F32.9 Major depressive disorder, single episode, unspecified; F41.9 Anxiety disorder, unspecified; G89.29 Other chronic pain; M19.90 Unspecified osteoarthritis, unspecified site; E78.00 Pure hypercholesterolemia, unspecified; I08.0 Rheumatic disorders of both mitral and aortic valves; I25.10 Atherosclerotic heart disease of native coronary artery without angina pectoris; M81.0 Age-related osteoporosis without current pathological fracture; R09.02 Hypoxemia; Z77.22 Contact with and (suspected) exposure to environmental tobacco smoke (acute) (chronic); Z90.49 Acquired absence of other specified parts of digestive tract; Z91.81 History of falling; Z88.5 Allergy status to narcotic agent; Z88.0 Allergy status to penicillin; Z88.8 Allergy status to other drugs, medicaments and biological substances; Z91.018 Allergy to other foods; Z79.899 Other long term (current) drug therapy; Z85.038 Personal history of other malignant neoplasm of large intestine; Z86.73 Personal history of transient ischemic attack (TIA), and cerebral infarction without residual deficits; Z80.3 Family history of malignant neoplasm of breast; Z80.8 Family history of malignant neoplasm of other organs or systems; Z82.49 Family history of ischemic heart disease and other diseases of the circulatory system
CPT/HCPCS: 32555; 36415; 71045; 71250; 80048; 80053; 81001; 82272; 83605; 83735; 84145; 85025; 85610; 87040; 87070; 87088; 93005; 93306; 94640; 94760; 96365; 97116; 97162; 97530; 99285; J0456; J1644; J1940; J2185; J7030; Q9967

== ENCOUNTER 2017-08-29 14:28 | Inpatient (IN) | payer MEDICARE, MEDICAID ==
[~2017-08-29] VITALS: Ht 157.5 cm; Wt 44.2 kg
[~2017-08-29 14:28] MED LIST changes: +POTA20TA19 PO
[2017-08-29 15:13] LABS: BASOPHILS % (AUTO) 0.3 % (0-1); EOSINOPHILS % (AUTO) 0.6 % (0-6); HEMATOCRIT 24.3 % (35.0-45.0); HEMOGLOBIN 7.9 g/dl (12.0-16.0); LYMPHOCYTES # (AUTO) 2.3 X10'3 (1.1-4.8); LYMPHOCYTES % (AUTO) 64.5 % (21-51); MEAN CORPUSCULAR HEMOGLOBIN 28.7 PG (27.0-31.0); MEAN CORPUSCULAR HGB CONC 32.3 % (33.0-36.5); MONOCYTES # (AUTO) 0.4 X10'3 (0-0.9); MONOCYTES % (AUTO) 9.9 % (2-12); NEUTROPHILS # (AUTO) 0.9 X10'3 (1.8-7.7); NEUTROPHILS % (AUTO) 24.7 % (42-75); PLATELET COUNT 156 X10'3 (140-440); RED BLOOD COUNT 2.73 X10'6 (4.20-5.60); RED CELL DISTRIBUTION WIDTH 26.5 % (11.5-14.5); WHITE BLOOD COUNT 3.6 X10'3 (4.5-11.0)
[2017-08-29 15:21] LABS: PARTIAL THROMBOPLASTIN TIME 20 SECONDS (22-32); PROTHROMBIN TIME 10.8 SECONDS (9.0-12.0)
[2017-08-29 15:28] LABS: ALBUMIN 3.2 G/DL (3.4-5.0); ALBUMIN/GLOBULIN RATIO 1.1 (1.1-1.5); ALKALINE PHOSPHATASE 62 IU/L (46-116); ANION GAP 9 (8-16); ASPARTATE AMINO TRANSFERASE 10 U/L (10-37); BLOOD UREA NITROGEN 10 MG/DL (7-18); BUN/CREATININE RATIO 20.4 (6.6-38.0); CALCIUM 9.2 MG/DL (8.5-10.1); CHLORIDE 104 MMOL/L (99-107); CREATININE 0.49 MG/DL (0.40-0.90); GLUCOSE 130 MG/DL (70-104); POTASSIUM 3.3 MMOL/L (3.5-5.1); SODIUM 145 MMOL/L (135-145); TOTAL CARBON DIOXIDE 31.6 MMOL/L (24-32); TOTAL PROTEIN 6.2 G/DL (6.4-8.2); eGFR > 90 ML/MIN
[2017-08-29 15:34] LABS: PLATELET ESTIMATE NORMAL
[2017-08-29 15:35] LABS: GIANT PLATELET FEW; LARGE PLATELETS FEW
[2017-08-29 15:40] LABS: ALANINE AMINOTRANSFERASE < 6 U/L (12-78)
[2017-08-29 15:51] LABS: STOMATOCYTES FEW
[2017-08-29 15:52] LABS: SCHISTOCYTES FEW
[2017-08-29 15:54] LABS: ELLIPTOCYTES FEW; HYPOCHROMASIA 1+; TEAR DROP CELLS FEW
[2017-08-29 15:55] LABS: POLYCHROMASIA FEW
[2017-08-29] MEDS ORDERED: mag hydrox/Alum hydrox/simeth 30ml oral suspension PO PRN (18:35)
[2017-08-29] MEDS ORDERED: magnesium hydroxide 30ml (MOM) UD suspension PO PRN (18:35)
[2017-08-29] MEDS ORDERED: magnesium 2GM in 50ml NS 50 ML IV PRN (18:35)
[2017-08-29] MEDS ORDERED: potassium Cl 40MEQ/NS 500ml 500 ML IV PRN ×2 (18:35)
[2017-08-29] MEDS ORDERED: magnesium Cl slow-release 64mg tablet PO PRN (18:35)
[2017-08-29] MEDS ORDERED: acetaminophen 325mg tablet PO PRN (18:35)
[2017-08-29] MEDS ORDERED: morphine 4 MG/ML inj SYRINge IV PRN (18:35)
[2017-08-29] MEDS ORDERED: potassium Cl 20 mEq SR tablet PO PRN (18:35)
[2017-08-29] MEDS ORDERED: magnesium 4gm in 100ml NS 100 ML IV PRN (18:35)
[2017-08-29] MEDS ORDERED: HYDROcodone/acetaminophen 5mg/325mg tablet PO PRN (18:35)
[2017-08-29] MEDS: K and/or MAG REPLACEMENT MC SCH (18:35)
[2017-08-29] MEDS ORDERED: ondansetron/PF 4mg/2ml inj IV PRN (18:35)
[2017-08-29] MEDS ORDERED: ipratropium/albuterol 3ml nebule NEB SCH (19:00)
[2017-08-29] MEDS: normal saline 1000ml 1,000 ML IV SCH (19:32)
[2017-08-29 21:20] VITALS: BP 155/55
[2017-08-29] MEDS ORDERED: sotalol 80mg tablet PO ONE (21:20)
[2017-08-29] MEDS ORDERED: divalproex sodium 250mg tablet PO ONE (21:20)
[2017-08-29] MEDS: potassium Cl 20 mEq SR tablet PO PRN (21:59)
[2017-08-29] MEDS: pantoprazole 40 MG vial IV SCH (22:25)
[2017-08-29] MEDS ORDERED: methylPREDNISolone sod succ 125mg/2ml vial IV ONE (22:40)
[2017-08-29] MEDS: aztreonam inj. 1,000 MG in dextrose 5%-water 50ml 50 ML IV SCH (23:10)
[2017-08-29] MEDS: ipratropium/albuterol 3ml nebule NEB SCH (23:58)
[2017-08-30] MEDS ORDERED: aztreonam inj. 1,000 MG in normal saline 100ml IV soln 100 ML IV SCH ×2
[2017-08-30] MEDS: methylPREDNISolone sod succ 125mg/2ml vial IV SCH ×4 (01:35→20:27)
[2017-08-30 02:00] VITALS: BP 142/55
[2017-08-30] MEDS: potassium Cl 20 mEq SR tablet PO PRN ×2 (02:20→06:13)
[2017-08-30 02:51] LABS: INR 1.1 INR; PROTHROMBIN TIME 11.1 SECONDS (9.0-12.0)
[2017-08-30 03:01] LABS: BASOPHILS % (AUTO) 0.1 % (0-1); EOSINOPHILS % (AUTO) 0.8 % (0-6); HEMATOCRIT 24.5 % (35.0-45.0); LYMPHOCYTES # (AUTO) 0.8 X10'3 (1.1-4.8); LYMPHOCYTES % (AUTO) 28.8 % (21-51); MEAN CORPUSCULAR HEMOGLOBIN 29.3 PG (27.0-31.0); MEAN CORPUSCULAR HGB CONC 32.7 % (33.0-36.5); MEAN CORPUSCULAR VOLUME 89.8 FL (78-98); MEAN PLATELET VOLUME 10.4 FL (7.4-10.4); MONOCYTES % (AUTO) 1.1 % (2-12); NEUTROPHILS % (AUTO) 69.2 % (42-75); PLATELET COUNT 146 X10'3 (140-440); RED BLOOD COUNT 2.73 X10'6 (4.20-5.60); RED CELL DISTRIBUTION WIDTH 27.2 % (11.5-14.5); WHITE BLOOD COUNT 2.9 X10'3 (4.5-11.0)
[2017-08-30] MEDS: ipratropium/albuterol 3ml nebule NEB SCH ×6 (03:04→23:31)
[2017-08-30 03:08] LABS: ANISOCYTOSIS 3+; NUCLEATED RED BLOOD CELLS 4 /100WBC (0-0); PLATELET ESTIMATE NORMAL; TOTAL CELLS COUNTED 100
[2017-08-30 03:11] LABS: ELLIPTOCYTES FEW; HYPOCHROMASIA 1+; POLYCHROMASIA FEW; SCHISTOCYTES FEW; STOMATOCYTES 1+; TEAR DROP CELLS FEW
[2017-08-30 03:12] LABS: GIANT PLATELET FEW; LARGE PLATELETS FEW
[2017-08-30 05:00] VITALS: BP 139/55
[2017-08-30] MEDS: levoTHYROXINE 25mcg tablet PO SCH (06:13)
[2017-08-30] MEDS: aztreonam inj. 1,000 MG in dextrose 5%-water 50ml 50 ML IV SCH ×3 (06:26→23:52)
[2017-08-30] MEDS ORDERED: pantoprazole 40mg Tablet.DR PO SCH (07:30)
[2017-08-30] MEDS: pantoprazole 40 MG vial IV SCH (07:31)
[2017-08-30] MEDS: azithromycin/NS 500mg/250ml 250 ML IV SCH (07:31)
[2017-08-30] MEDS: heparin, porcine 5000 units/ml vial SQ SCH ×2 (07:32→20:27)
[2017-08-30] MEDS: sotalol 80mg tablet PO SCH ×2 (07:32→20:27)
[2017-08-30] MEDS: divalproex sodium 250mg tablet PO SCH ×4 (07:32→19:02)
[2017-08-30] MEDS: atorvastatin 10mg tablet PO SCH (07:32)
[2017-08-30] MEDS: K and/or MAG REPLACEMENT MC SCH (08:00)
[2017-08-30] MEDS ORDERED: CefTRIAXone/D5W-Rocephin 1gm 50 ML IV SCH (08:00)
[2017-08-30 08:50] LABS: ALBUMIN 3.3 G/DL (3.4-5.0); ANION GAP 6 (8-16); BLOOD UREA NITROGEN 15 MG/DL (7-18); BUN/CREATININE RATIO 24.2 (6.6-38.0); CALCIUM 9.4 MG/DL (8.5-10.1); CHLORIDE 105 MMOL/L (99-107); CREATININE 0.62 MG/DL (0.40-0.90); GLUCOSE 195 MG/DL (70-104); MAGNESIUM 1.7 MG/DL (1.5-2.4); SODIUM 145 MMOL/L (135-145); TOTAL CARBON DIOXIDE 34.5 MMOL/L (24-32); eGFR > 90 ML/MIN
[2017-08-30 10:00] VITALS: BP 130/49
[2017-08-30 18:00] VITALS: BP 125/49
[2017-08-30] MEDS: lactobacillus rhamnosus 10,000 MMU CELLS/CAPSULE PO SCH (20:27)
[2017-08-30 22:00] VITALS: BP 126/47
[2017-08-31] MEDS: ipratropium/albuterol 3ml nebule NEB SCH ×6 (02:49→23:31)
[2017-08-31] MEDS: methylPREDNISolone sod succ 125mg/2ml vial IV SCH ×2 (03:44→07:30)
[2017-08-31 05:32] LABS: HEMOGLOBIN 7.1 g/dl (12.0-16.0); MEAN CORPUSCULAR HEMOGLOBIN 28.9 PG (27.0-31.0); MEAN CORPUSCULAR HGB CONC 32.6 % (33.0-36.5); MEAN CORPUSCULAR VOLUME 88.5 FL (78-98); MEAN PLATELET VOLUME 11.1 FL (7.4-10.4); PLATELET COUNT 152 X10'3 (140-440); RED BLOOD COUNT 2.47 X10'6 (4.20-5.60); RED CELL DISTRIBUTION WIDTH 26.9 % (11.5-14.5); WHITE BLOOD COUNT 1.4 X10'3 (4.5-11.0)
[2017-08-31 05:40] LABS: INR 1.1 INR; PROTHROMBIN TIME 11.4 SECONDS (9.0-12.0)
[2017-08-31 05:47] LABS: ALBUMIN 3.1 G/DL (3.4-5.0); ANION GAP 7 (8-16); BLOOD UREA NITROGEN 25 MG/DL (7-18); BUN/CREATININE RATIO 32.5 (6.6-38.0); CALCIUM 9.4 MG/DL (8.5-10.1); CHLORIDE 105 MMOL/L (99-107); CREATININE 0.77 MG/DL (0.40-0.90); GLUCOSE 183 MG/DL (70-104); MAGNESIUM 1.8 MG/DL (1.5-2.4); POTASSIUM 4.8 MMOL/L (3.5-5.1); SODIUM 143 MMOL/L (135-145); TOTAL CARBON DIOXIDE 31.3 MMOL/L (24-32); eGFR 71 ML/MIN
[2017-08-31 06:00] VITALS: BP 151/42
[2017-08-31 06:49] LABS: HEMATOCRIT 21.8 % (35.0-45.0)
[2017-08-31 07:12] LABS: TOTAL CELLS COUNTED 100
[2017-08-31 07:13] LABS: ANISOCYTOSIS 3+; HYPOCHROMASIA 1+; MICROCYTOSIS 1+; PLATELET ESTIMATE NORMAL; TARGET CELLS FEW; TEAR DROP CELLS FEW
[2017-08-31 07:14] LABS: LARGE PLATELETS FEW; SCHISTOCYTES FEW
[2017-08-31] MEDS: sotalol 80mg tablet PO SCH ×2 (07:30→20:24)
[2017-08-31] MEDS: divalproex sodium 250mg tablet PO SCH ×3 (07:30→17:14)
[2017-08-31] MEDS: atorvastatin 10mg tablet PO SCH (07:30)
[2017-08-31] MEDS: levoTHYROXINE 25mcg tablet PO SCH (07:30)
[2017-08-31] MEDS ORDERED: pantoprazole 40mg Tablet.DR PO SCH (07:30)
[2017-08-31] MEDS: lactobacillus rhamnosus 10,000 MMU CELLS/CAPSULE PO SCH ×2 (07:30→20:24)
[2017-08-31] MEDS: aztreonam inj. 1,000 MG in dextrose 5%-water 50ml 50 ML IV SCH ×3 (07:31→23:59)
[2017-08-31] MEDS: heparin, porcine 5000 units/ml vial SQ SCH ×2 (07:35→20:24)
[2017-08-31] MEDS: azithromycin/NS 500mg/250ml 250 ML IV SCH (07:39)
[2017-08-31] MEDS: K and/or MAG REPLACEMENT MC SCH (08:00)
[2017-08-31] MEDS ORDERED: epoetin 20,000 units/ml inj SQ ONE (09:00)
[2017-08-31 10:00] VITALS: BP 140/42
[2017-08-31 18:00] VITALS: BP 148/62
[2017-08-31 22:00] VITALS: BP 142/48
[2017-09-01] MEDS: ipratropium/albuterol 3ml nebule NEB SCH ×6 (03:08→23:55)
[2017-09-01 05:20] LABS: BASOPHILS % (AUTO) 0 % (0-1); EOSINOPHILS % (AUTO) 0.8 % (0-6); HEMOGLOBIN 7.1 g/dl (12.0-16.0); LYMPHOCYTES # (AUTO) 1.6 X10'3 (1.1-4.8); LYMPHOCYTES % (AUTO) 37.7 % (21-51); MEAN CORPUSCULAR HGB CONC 32.3 % (33.0-36.5); MEAN CORPUSCULAR VOLUME 89.9 FL (78-98); MEAN PLATELET VOLUME 10.6 FL (7.4-10.4); MONOCYTES # (AUTO) 0.3 X10'3 (0-0.9); MONOCYTES % (AUTO) 6.5 % (2-12); NEUTROPHILS # (AUTO) 2.3 X10'3 (1.8-7.7); PLATELET COUNT 157 X10'3 (140-440); RED BLOOD COUNT 2.45 X10'6 (4.20-5.60); RED CELL DISTRIBUTION WIDTH 27.1 % (11.5-14.5); WHITE BLOOD COUNT 4.2 X10'3 (4.5-11.0)
[2017-09-01 05:30] LABS: INR 1.1 INR; PROTHROMBIN TIME 11.4 SECONDS (9.0-12.0)
[2017-09-01 05:32] LABS: ALBUMIN 2.9 G/DL (3.4-5.0); ANION GAP 5 (8-16); BLOOD UREA NITROGEN 25 MG/DL (7-18); BUN/CREATININE RATIO 39.1 (6.6-38.0); CALCIUM 9.3 MG/DL (8.5-10.1); CHLORIDE 105 MMOL/L (99-107); CREATININE 0.64 MG/DL (0.40-0.90); GLUCOSE 128 MG/DL (70-104); MAGNESIUM 1.8 MG/DL (1.5-2.4); POTASSIUM 4.2 MMOL/L (3.5-5.1); SODIUM 143 MMOL/L (135-145); TOTAL CARBON DIOXIDE 32.7 MMOL/L (24-32); eGFR 87 ML/MIN
[2017-09-01 07:05] VITALS: BP 165/50
[2017-09-01] MEDS: normal saline 1000ml 1,000 ML IV SCH (07:08)
[2017-09-01 07:13] LABS: ANISOCYTOSIS 3+; NUCLEATED RED BLOOD CELLS 2 /100WBC (0-0); PLATELET ESTIMATE NORMAL; TOTAL CELLS COUNTED 100
[2017-09-01 07:14] LABS: HYPOCHROMASIA 1+; LARGE PLATELETS FEW; MICROCYTOSIS 1+; POLYCHROMASIA 1+; SCHISTOCYTES FEW; TEAR DROP CELLS FEW
[2017-09-01] MEDS: lactobacillus rhamnosus 10,000 MMU CELLS/CAPSULE PO SCH ×2 (07:36→20:15)
[2017-09-01] MEDS: divalproex sodium 250mg tablet PO SCH ×3 (07:36→16:22)
[2017-09-01] MEDS: atorvastatin 10mg tablet PO SCH (07:36)
[2017-09-01] MEDS: sotalol 80mg tablet PO SCH ×2 (07:36→20:14)
[2017-09-01] MEDS: heparin, porcine 5000 units/ml vial SQ SCH ×2 (07:37→20:15)
[2017-09-01] MEDS: aztreonam inj. 1,000 MG in dextrose 5%-water 50ml 50 ML IV SCH ×3 (07:37→23:16)
[2017-09-01] MEDS: azithromycin/NS 500mg/250ml 250 ML IV SCH (07:37)
[2017-09-01] MEDS: levoTHYROXINE 25mcg tablet PO SCH (07:37)
[2017-09-01] MEDS: K and/or MAG REPLACEMENT MC SCH (07:43)
[2017-09-01 10:00] VITALS: BP 159/48
[2017-09-01] MEDS: HYDROcodone/acetaminophen 10/325mg tab PO PRN ×2 (11:18→23:15)
[2017-09-01 18:00] VITALS: BP 154/45
[2017-09-01 22:00] VITALS: BP 146/46
[2017-09-02] MEDS: ipratropium/albuterol 3ml nebule NEB SCH ×6 (03:00→23:00)
[2017-09-02 06:00] VITALS: BP 89/56
[2017-09-02 06:12] LABS: ALBUMIN 2.9 G/DL (3.4-5.0); ANION GAP 5 (8-16); BLOOD UREA NITROGEN 19 MG/DL (7-18); BUN/CREATININE RATIO 36.5 (6.6-38.0); CALCIUM 9.1 MG/DL (8.5-10.1); CHLORIDE 105 MMOL/L (99-107); CREATININE 0.52 MG/DL (0.40-0.90); GLUCOSE 80 MG/DL (70-104); MAGNESIUM 1.7 MG/DL (1.5-2.4); POTASSIUM 3.8 MMOL/L (3.5-5.1); SODIUM 142 MMOL/L (135-145); TOTAL CARBON DIOXIDE 31.9 MMOL/L (24-32); eGFR > 90 ML/MIN
[2017-09-02 06:51] LABS: HEMATOCRIT 22.9 % (35.0-45.0); HEMOGLOBIN 7.3 g/dl (12.0-16.0); MEAN CORPUSCULAR HEMOGLOBIN 28.8 PG (27.0-31.0); MEAN CORPUSCULAR HGB CONC 31.9 % (33.0-36.5); MEAN CORPUSCULAR VOLUME 90.2 FL (78-98); MEAN PLATELET VOLUME 10.5 FL (7.4-10.4); PLATELET COUNT 158 X10'3 (140-440); RED BLOOD COUNT 2.54 X10'6 (4.20-5.60); RED CELL DISTRIBUTION WIDTH 26.8 % (11.5-14.5)
[2017-09-02] MEDS: K and/or MAG REPLACEMENT MC SCH (08:00)
[2017-09-02 08:01] LABS: INR 1.1 INR
[2017-09-02] MEDS: atorvastatin 10mg tablet PO SCH (08:08)
[2017-09-02 08:09] LABS: TOTAL CELLS COUNTED 100
[2017-09-02] MEDS: lactobacillus rhamnosus 10,000 MMU CELLS/CAPSULE PO SCH ×2 (08:09→19:14)
[2017-09-02] MEDS: pantoprazole 40mg Tablet.DR PO SCH (08:09)
[2017-09-02] MEDS: sotalol 80mg tablet PO SCH ×2 (08:09→19:14)
[2017-09-02] MEDS: levoTHYROXINE 25mcg tablet PO SCH (08:10)
[2017-09-02 08:11] LABS: ANISOCYTOSIS 3+; PLATELET ESTIMATE NORMAL
[2017-09-02 08:12] LABS: HYPOCHROMASIA 1+; MICROCYTOSIS 1+
[2017-09-02] MEDS: divalproex sodium 250mg tablet PO SCH ×3 (08:12→17:36)
[2017-09-02 08:13] LABS: POIKILOCYTOSIS 1+; TEAR DROP CELLS 1+
[2017-09-02 08:14] LABS: LARGE PLATELETS FEW; POLYCHROMASIA 1+
[2017-09-02] MEDS: heparin, porcine 5000 units/ml vial SQ SCH ×2 (08:15→19:14)
[2017-09-02] MEDS: azithromycin/NS 500mg/250ml 250 ML IV SCH (08:16)
[2017-09-02] MEDS: aztreonam inj. 1,000 MG in dextrose 5%-water 50ml 50 ML IV SCH ×3 (09:40→23:03)
[2017-09-02 10:00] VITALS: BP 153/51
[2017-09-02 13:20] LABS: BASOPHILS % (AUTO) 0 % (0-1); EOSINOPHILS # (AUTO) 0.1 X10'3 (0-0.9); EOSINOPHILS % (AUTO) 1.7 % (0-6); HEMATOCRIT 24.8 % (35.0-45.0); LYMPHOCYTES # (AUTO) 1.7 X10'3 (1.1-4.8); LYMPHOCYTES % (AUTO) 41.8 % (21-51); MEAN CORPUSCULAR HEMOGLOBIN 28.9 PG (27.0-31.0); MEAN CORPUSCULAR HGB CONC 32.3 % (33.0-36.5); MEAN CORPUSCULAR VOLUME 89.3 FL (78-98); MEAN PLATELET VOLUME 10.3 FL (7.4-10.4); MONOCYTES # (AUTO) 0.5 X10'3 (0-0.9); MONOCYTES % (AUTO) 12.5 % (2-12); NEUTROPHILS # (AUTO) 1.8 X10'3 (1.8-7.7); PLATELET COUNT 182 X10'3 (140-440); RED BLOOD COUNT 2.78 X10'6 (4.20-5.60); RED CELL DISTRIBUTION WIDTH 25.7 % (11.5-14.5)
[2017-09-02 18:24] VITALS: BP 162/47
[2017-09-02 22:00] VITALS: BP 155/45
[2017-09-02] MEDS: HYDROcodone/acetaminophen 10/325mg tab PO PRN (23:03)
[2017-09-03] MEDS: ipratropium/albuterol 3ml nebule NEB SCH ×3 (02:21→11:33)
[2017-09-03 05:25] LABS: BASOPHILS % (AUTO) 0.2 % (0-1); EOSINOPHILS % (AUTO) 0.8 % (0-6); HEMOGLOBIN 7.2 g/dl (12.0-16.0); LYMPHOCYTES # (AUTO) 2.4 X10'3 (1.1-4.8); LYMPHOCYTES % (AUTO) 56.4 % (21-51); MEAN CORPUSCULAR HGB CONC 32.5 % (33.0-36.5); MEAN CORPUSCULAR VOLUME 89.2 FL (78-98); MEAN PLATELET VOLUME 9.8 FL (7.4-10.4); MONOCYTES # (AUTO) 0.3 X10'3 (0-0.9); MONOCYTES % (AUTO) 7.3 % (2-12); NEUTROPHILS # (AUTO) 1.5 X10'3 (1.8-7.7); NEUTROPHILS % (AUTO) 35.3 % (42-75); PLATELET COUNT 148 X10'3 (140-440); RED BLOOD COUNT 2.47 X10'6 (4.20-5.60); RED CELL DISTRIBUTION WIDTH 26.1 % (11.5-14.5); WHITE BLOOD COUNT 4.2 X10'3 (4.5-11.0)
[2017-09-03 05:29] LABS: INR 1.1 INR; PROTHROMBIN TIME 11.6 SECONDS (9.0-12.0)
[2017-09-03 05:31] LABS: ALBUMIN 2.8 G/DL (3.4-5.0); ANION GAP 5 (8-16); BLOOD UREA NITROGEN 11 MG/DL (7-18); BUN/CREATININE RATIO 21.6 (6.6-38.0); CALCIUM 8.8 MG/DL (8.5-10.1); CHLORIDE 105 MMOL/L (99-107); CREATININE 0.51 MG/DL (0.40-0.90); GLUCOSE 90 MG/DL (70-104); MAGNESIUM 1.8 MG/DL (1.5-2.4); POTASSIUM 3.8 MMOL/L (3.5-5.1); SODIUM 146 MMOL/L (135-145); TOTAL CARBON DIOXIDE 36.3 MMOL/L (24-32); eGFR > 90 ML/MIN
[2017-09-03 06:00] VITALS: BP 155/47
[2017-09-03] MEDS: sotalol 80mg tablet PO SCH (07:25)
[2017-09-03] MEDS: HYDROcodone/acetaminophen 10/325mg tab PO PRN (07:26)
[2017-09-03] MEDS: lactobacillus rhamnosus 10,000 MMU CELLS/CAPSULE PO SCH (07:27)
[2017-09-03] MEDS: divalproex sodium 250mg tablet PO SCH ×2 (07:27→13:20)
[2017-09-03] MEDS: levoTHYROXINE 25mcg tablet PO SCH (07:27)
[2017-09-03] MEDS: pantoprazole 40mg Tablet.DR PO SCH (07:28)
[2017-09-03] MEDS: atorvastatin 10mg tablet PO SCH (07:28)
[2017-09-03] MEDS: azithromycin/NS 500mg/250ml 250 ML IV SCH (07:30)
[2017-09-03] MEDS: normal saline 1000ml 1,000 ML IV SCH (07:36)
[2017-09-03] MEDS: heparin, porcine 5000 units/ml vial SQ SCH (07:37)
[2017-09-03] MEDS: K and/or MAG REPLACEMENT MC SCH (07:37)
[2017-09-03] MEDS: aztreonam inj. 1,000 MG in dextrose 5%-water 50ml 50 ML IV SCH ×2 (08:57→16:00)
[2017-09-03 09:53] LABS: PLATELET ESTIMATE NORMAL
[2017-09-03 09:54] LABS: ANISOCYTOSIS 3+; HYPOCHROMASIA 1+; POIKILOCYTOSIS 1+; POLYCHROMASIA FEW; SCHISTOCYTES FEW; STOMATOCYTES 1+; TEAR DROP CELLS 2+
[2017-09-03 10:00] VITALS: BP 140/45
[2017-09-03 11:29] LABS: BASOPHILS % (AUTO) 0.2 % (0-1); HEMATOCRIT 22.7 % (35.0-45.0); HEMOGLOBIN 7.3 g/dl (12.0-16.0); LYMPHOCYTES % (AUTO) 49.9 % (21-51); MEAN CORPUSCULAR HEMOGLOBIN 28.7 PG (27.0-31.0); MEAN CORPUSCULAR HGB CONC 32.2 % (33.0-36.5); MEAN CORPUSCULAR VOLUME 89.2 FL (78-98); MEAN PLATELET VOLUME 10.4 FL (7.4-10.4); MONOCYTES # (AUTO) 0.3 X10'3 (0-0.9); MONOCYTES % (AUTO) 7.8 % (2-12); NEUTROPHILS # (AUTO) 1.6 X10'3 (1.8-7.7); NEUTROPHILS % (AUTO) 41.1 % (42-75); PLATELET COUNT 159 X10'3 (140-440); RED BLOOD COUNT 2.55 X10'6 (4.20-5.60); RED CELL DISTRIBUTION WIDTH 25.9 % (11.5-14.5)
== END 2017-09-03 16:50 | DRG 193 ==
LOC: ER 14:28 → ED HOLD 18:35 → ORTHO 4S 21:10
PROVIDERS: ADMIT Internal Medicine; ATTEND Internal Medicine
DX: J15.9 Unspecified bacterial pneumonia (principal); E43 Unspecified severe protein-calorie malnutrition; I50.33 Acute on chronic diastolic (congestive) heart failure; G62.9 Polyneuropathy, unspecified; I08.3 Combined rheumatic disorders of mitral, aortic and tricuspid valves; D46.9 Myelodysplastic syndrome, unspecified; J44.0 Chronic obstructive pulmonary disease with (acute) lower respiratory infection; J44.1 Chronic obstructive pulmonary disease with (acute) exacerbation; Z68.1 Body mass index [BMI] 19.9 or less, adult; I11.0 Hypertensive heart disease with heart failure; D63.8 Anemia in other chronic diseases classified elsewhere; G89.29 Other chronic pain; M54.9 Dorsalgia, unspecified; F41.9 Anxiety disorder, unspecified; F32.9 Major depressive disorder, single episode, unspecified; E03.9 Hypothyroidism, unspecified; E78.00 Pure hypercholesterolemia, unspecified; I25.10 Atherosclerotic heart disease of native coronary artery without angina pectoris; M81.0 Age-related osteoporosis without current pathological fracture; Z90.49 Acquired absence of other specified parts of digestive tract; Z98.49 Cataract extraction status, unspecified eye; Z88.0 Allergy status to penicillin; Z88.1 Allergy status to other antibiotic agents; Z88.6 Allergy status to analgesic agent; Z88.8 Allergy status to other drugs, medicaments and biological substances; Z85.038 Personal history of other malignant neoplasm of large intestine; Z86.73 Personal history of transient ischemic attack (TIA), and cerebral infarction without residual deficits; Z80.3 Family history of malignant neoplasm of breast; Z80.8 Family history of malignant neoplasm of other organs or systems; Z82.49 Family history of ischemic heart disease and other diseases of the circulatory system
CPT/HCPCS: 36415; 71046; 80048; 80053; 83605; 83735; 83880; 84443; 84484; 85025; 85610; 85730; 86885; 86900; 86901; 87040; 87070; 94640; 94760; 97110; 97116; 97161; 97164; 97530; 99285; C9113; J0456; J0885; J1644; J2930; J3490; J7030; J7060

== ENCOUNTER 2017-12-24 12:29 | Emergency (ER) | payer MEDICARE, MEDICAID ==
[~2017-12-24] VITALS: Ht 157.5 cm; Wt 41.2 kg
[~2017-12-24 12:29] MED LIST changes: -POTA20TA19 PO
[2017-12-24 12:32] VITALS: BP 188/89
[2017-12-24 13:20] LABS: CLARITY,URINE CLEAR (Clear); COLOR,URINE YELLOW (Yellow); GLUCOSE, URINE NEGATIVE (Neg); KETONES,URINE TRACE mg/dl (Neg); LEUKOCYTE ESTERASE ,URINE NEGATIVE (Neg); NITRITES, URINE NEGATIVE (Neg); OCCULT BLOOD,URINE MODERATE (Neg); PROTEIN,URINE 30 mg/dl (Neg)
[2017-12-24 13:26] LABS: UA COLLECTION TYPE VOIDED
[2017-12-24 13:28] LABS: HYALINE CASTS 0-3 /LPF (NEGATIVE); MUCUS STRANDS MANY /LPF (Neg); SQUAMOUS EPITHELIAL CELL,UR MANY /LPF (FEW)
[2017-12-24 13:29] LABS: BACTERIA,URINE 2+ /HPF (Neg); RBC,URINE 0-2 /HPF (0-2)
[2017-12-24] MEDS ORDERED: SULF1TAB49 PO (13:40)
[2017-12-24] MEDS ORDERED: HYDROcodone/acetaminophen 5mg/325mg tablet PO ONE (13:45)
[2017-12-28] MEDS ORDERED: POLY119P2 PO (17:56)
[2017-12-28] MEDS ORDERED: BISA-155 PO (17:56)
[2017-12-28] MEDS ORDERED: MAGN296S50 PO (17:56)
== END 2017-12-24 13:54 | disposition home or self-care (01) ==
LOC: ER 12:29
DX: N39.0 Urinary tract infection, site not specified (principal); M54.5 Low back pain; G62.9 Polyneuropathy, unspecified; I25.10 Atherosclerotic heart disease of native coronary artery without angina pectoris; E78.00 Pure hypercholesterolemia, unspecified; I10 Essential (primary) hypertension; J44.9 Chronic obstructive pulmonary disease, unspecified; G89.29 Other chronic pain; M19.90 Unspecified osteoarthritis, unspecified site; E03.9 Hypothyroidism, unspecified; Z85.038 Personal history of other malignant neoplasm of large intestine; Z90.49 Acquired absence of other specified parts of digestive tract; Z98.890 Other specified postprocedural states; Z90.89 Acquired absence of other organs; Z86.73 Personal history of transient ischemic attack (TIA), and cerebral infarction without residual deficits; Z88.0 Allergy status to penicillin; Z88.8 Allergy status to other drugs, medicaments and biological substances; Z88.5 Allergy status to narcotic agent; Z79.899 Other long term (current) drug therapy
CPT/HCPCS: 81001; 99284

== ENCOUNTER 2018-02-07 13:55 | Emergency (ER) | payer MEDICARE, MEDICAID ==
[~2018-02-07] VITALS: Ht 157.5 cm; Wt 48.0 kg
[~2018-02-07 13:55] MED LIST changes: +BISA-155 PO; +DIVA-76 PO; -DIVA500T7 PO; +MAGN296S50 PO; +POLY119P2 PO
[2018-02-07 14:06] VITALS: BP 176/50
[2018-02-07] MEDS ORDERED: normal saline 1000ML IV soln IVB ONE (14:25)
[2018-02-07] MEDS ORDERED: ondansetron/PF 4mg/2ml inj IV ONE (14:25)
[2018-02-07] MEDS: morphine 4 MG/ML inj SYRINge IV PRN ×2 (15:00→15:08)
[2018-02-07 15:05] LABS: BASOPHILS % (AUTO) 0.4 % (0-1); EOSINOPHILS % (AUTO) 0.4 % (0-6); HEMOGLOBIN 9.1 g/dl (12.0-16.0); LYMPHOCYTES # (AUTO) 2.4 X10'3 (1.1-4.8); LYMPHOCYTES % (AUTO) 59.4 % (21-51); MEAN CORPUSCULAR HEMOGLOBIN 28.8 PG (27.0-31.0); MEAN CORPUSCULAR HGB CONC 32.7 % (33.0-36.5); MEAN CORPUSCULAR VOLUME 88.1 FL (78-98); MEAN PLATELET VOLUME 9.5 FL (7.4-10.4); MONOCYTES # (AUTO) 0.4 X10'3 (0-0.9); MONOCYTES % (AUTO) 10.7 % (2-12); NEUTROPHILS # (AUTO) 1.1 X10'3 (1.8-7.7); NEUTROPHILS % (AUTO) 29.1 % (42-75); PLATELET COUNT 159 X10'3 (140-440); RED BLOOD COUNT 3.17 X10'6 (4.20-5.60); RED CELL DISTRIBUTION WIDTH 25.3 % (11.5-14.5); WHITE BLOOD COUNT 3.9 X10'3 (4.5-11.0)
[2018-02-07 15:19] LABS: ALANINE AMINOTRANSFERASE 10 U/L (12-78); ALBUMIN 3.7 G/DL (3.4-5.0); ALBUMIN/GLOBULIN RATIO 1.3 (1.1-1.5); ALKALINE PHOSPHATASE 78 IU/L (46-116); ANION GAP 7 (8-16); ASPARTATE AMINO TRANSFERASE 10 U/L (10-37); BILIRUBIN,TOTAL 0.8 MG/DL (0.1-1.0); BLOOD UREA NITROGEN 13 MG/DL (7-18); BUN/CREATININE RATIO 21.3 (6.6-38.0); CHLORIDE 104 MMOL/L (99-107); CREATININE 0.61 MG/DL (0.40-0.90); GLUCOSE 101 MG/DL (70-104); LIPASE 98 U/L (73-393); POTASSIUM 3.6 MMOL/L (3.5-5.1); SODIUM 145 MMOL/L (135-145); TOTAL CARBON DIOXIDE 33.7 MMOL/L (24-32); TOTAL PROTEIN 6.6 G/DL (6.4-8.2); eGFR > 90 ML/MIN
[2018-02-07 15:24] LABS: CALCIUM 8.8 MG/DL (8.5-10.1)
[2018-02-07 15:34] LABS: ANISOCYTOSIS 3+; BANDS% (MANUAL) 4 % (0-10); HYPOCHROMASIA 1+; LYMPHOCYTES % (MANUAL) 55 % (21-51); MONOCYTES % (MANUAL) 15 % (2-12); NEUTROPHILS % (MANUAL) 26 % (42-75); PLATELET ESTIMATE NORMAL; TOTAL CELLS COUNTED 100
[2018-02-07 15:35] LABS: SCHISTOCYTES FEW; TEAR DROP CELLS FEW
[2018-02-07 15:42] LABS: CLARITY,URINE SLIGHTLY CLOUDY (Clear); COLOR,URINE YELLOW (Yellow); GLUCOSE, URINE NEGATIVE (Neg); KETONES,URINE NEGATIVE (Neg); LEUKOCYTE ESTERASE ,URINE NEGATIVE (Neg); NITRITES, URINE POSITIVE (Neg); OCCULT BLOOD,URINE SMALL (Neg); PROTEIN,URINE 100 mg/dl (Neg)
[2018-02-07 15:44] LABS: UA COLLECTION TYPE OTHER
[2018-02-07] MEDS ORDERED: gentamicin inj 400 MG in normal saline 100ml IV soln 100 ML IV STA (15:46)
[2018-02-07 15:49] LABS: AMORPHOUS URATES 1+; BACTERIA,URINE 3+ /HPF (Neg); MUCUS STRANDS NONE SEEN /LPF (Neg); RBC,URINE NONE SEEN /HPF (0-2); SQUAMOUS EPITHELIAL CELL,UR NONE SEEN /LPF (FEW); WBC,URINE 0-4 /HPF (0-4)
[2018-02-07] MEDS ORDERED: ONDA4TAB12 PO (15:50)
[2018-02-07] MEDS ORDERED: BACDS PO (15:50)
== END 2018-02-07 17:34 | disposition home or self-care (01) ==
LOC: ER 13:56
DX: N39.0 Urinary tract infection, site not specified (principal); R10.11 Right upper quadrant pain; G62.9 Polyneuropathy, unspecified; I25.10 Atherosclerotic heart disease of native coronary artery without angina pectoris; E78.00 Pure hypercholesterolemia, unspecified; I10 Essential (primary) hypertension; J44.9 Chronic obstructive pulmonary disease, unspecified; E03.9 Hypothyroidism, unspecified; G89.29 Other chronic pain; M19.90 Unspecified osteoarthritis, unspecified site; M81.0 Age-related osteoporosis without current pathological fracture; Z86.73 Personal history of transient ischemic attack (TIA), and cerebral infarction without residual deficits; Z90.49 Acquired absence of other specified parts of digestive tract; Z98.890 Other specified postprocedural states; Z88.0 Allergy status to penicillin; Z88.1 Allergy status to other antibiotic agents; Z88.6 Allergy status to analgesic agent; Z88.5 Allergy status to narcotic agent; Z79.899 Other long term (current) drug therapy
CPT/HCPCS: 36415; 74176; 80053; 81001; 83690; 84145; 85025; 87077; 87088; 87186; 96365; 96375; 99285; A4353; J1580; J2405; J7030; J2270